=== PATIENT | female | born 1980 | race Caucasian/White ===

== ENCOUNTER 2021-01-21 08:54 | Outpatient (CLI) | payer BC, MEDICAID, SELFPAY ==
--- NOTE | 2021-01-21 09:02 | MM_ITS ---
WS: [id number] BILATERAL SCREENING MAMMOGRAM WITH MIAH DISPLACEMENT VIEWS. CAD PERFORMED. HISTORY: SCREENING COMPARISON: None available. Bilateral craniocaudal and mediolateral like views are performed. Miah displacement views in CC and MLO projection also performed. Breasts composition: There are scattered areas of fibroglandular density. Retropectoral implants are intact. There is a very tiny amount of calcification around the implants. No suspicious breast calcifications or mass. MM/[id number] IMPRESSION: BI-RADS: 2-Benign FOLLOW-UP: 1 Year Follow-up
== END 2021-01-21 08:55 | disposition home or self-care (01) ==
LOC: RADSHAW 08:59
PROVIDERS: PCP Family Medicine; Visit Provider Family Medicine
DX: Z12.31 Encounter for screening mammogram for malignant neoplasm of breast (principal)
CPT/HCPCS: 77067

== ENCOUNTER 2022-03-09 14:49 | Outpatient (CLI) | payer BC, MEDICAID, SELFPAY ==
--- NOTE | 2022-03-09 14:55 | MM_ITS ---
WS: [id number] BILATERAL 3D TOMOSYNTHESIS DIGITAL SCREENING MAMMOGRAPHY WITH CAD CLINICAL INFORMATION: SCREENING HISTORY: Screening mammogram. No current complaints. COMPARISON: January 21, 2021 TECHNIQUE: Bilateral CC and MLO views. FINDINGS: Bilateral breast implants appear mammographically intact. Small amount of capsular calcific ation. Scattered fibroglandular densities bilaterally. No suspicious focal mass, asymmetry, calcifications, or architectural distortion. No evidence of malignancy. MM/[id number] IMPRESSION: BI-RADS: 2-Benign FOLLOW UP: 1 Year Follow-up Recommend return to annual screening mammography.
== END 2022-03-09 14:50 | disposition home or self-care (01) ==
PROVIDERS: PCP Family Medicine; Visit Provider Nurse Practitioner Family
DX: Z12.31 Encounter for screening mammogram for malignant neoplasm of breast (principal)
CPT/HCPCS: 77063; 77067

== ENCOUNTER 2022-12-15 11:27 | Day surgery (SDC) | payer BC, MEDICAID, SELFPAY ==
[2022-12-14 11:39] VITALS: BMI 24.3
[2022-12-15] VITALS (7 sets, daily range): BP systolic 97–123; BP diastolic 61–71; PULSE 62–86; RESP 16–17; TEMP 36.3–37.6; O2SAT 97–100
[2022-12-15] MEDS: acetaminophen 1,000 MG/100 ML PIGGYBACK 400 MG IV (11:51)
[2022-12-15] MEDS: sodium chloride 0.9% 1,000 ML 30 ML IV (11:51)
[2022-12-15] MEDS: scopolamine 1.5 Patch 1 PATCH TRANSDERMA (11:51)
[2022-12-15] MEDS: gabapentin 300 mg Capsule PO (11:51)
[2022-12-15] MEDS: phenazopyridine 100 mg Tablet 200 MG PO (11:51)
[2022-12-15] MEDS: CELEcoxib 200 mg Capsule 400 MG PO (11:54)
--- NOTE | 2022-12-15 11:58 | W.PM.OPSUD ---
Surgery/Procedure H&P Update DATE OF PROCEDURE: December 15, 2022 DATE H&P PERFORMED: 12/10/22 H&P UPDATE INFORMATION: I have reviewed H&P completed within last 30 days, I have examined patient prior to procedure and No changes to prior documentation PREOP DIAGNOSIS: desires permanent sterilization PLANNED PROCEDURE: Operation Date: 12/15/22 13:25 Proposed Procedures p Laparoscopic bilateral salpingectomy 80199 Z30.2(Bilateral) - Cynthia Arteaga MD Related Problem List Diagnoses (1) Sterilization consult:
[2022-12-15 12:06] LABS: OR HCG Qualitative Urine Negative (Negative)
--- NOTE | 2022-12-15 13:09 | ANES.PREANE2 ---
Pre-Anesthetic Assessment Height/Weight: Height 1.78 m Weight 77.111 kg Temp Pulse Resp BP Pulse Ox O2 Del Method 97.8 F 62 16 123/63 98 12/15/22 11:45 12/15/22 11:45 12/15/22 11:45 12/15/22 11:45 12/15/22 11:45 12/15/22 12:03 Preop Diagnosis: desires permanent sterilization Operation Date: 12/15/22 13:25 Proposed Procedures p Laparoscopic bilateral salpingectomy 27041 Z30.2(Bilateral) - Cynthia Arteaga MD Familial anesthetic complications: PONV Was Beta Tenisha taken within 24 hours: N/A Was Clonidine taken within 24 hours: N/A Last intake: Intake Last Liquid Date 12/14/22 Last Liquid Time 22:30 Last Solid Date 12/14/22 Last Solid Time 22:30 Social No alcohol and No tobacco Exam alert, oriented x 3, clear to auscultation bilaterally and regular rate & rhythm Airway Submandibular: within normal limits Cervical ROM: within normal limits Mallampati: Class II Dentition: full History/ROS No significant history except as noted Neuropsych Anxiety and Depression Anesthetic Plan ASA status: 2 Anesthesia: General Medications/Allergies Home Medications Medication Instructions Recorded Confirmed Last Taken Type medroxyprogesterone 150 mg/mL 150 mg IM DIRECTED 10/15/22 12/14/22 11/19/22 History intramuscular suspension (Depo-Provera) bupropion HCl 100 mg tablet,12 hr 150 mg PO DAILY 12/10/22 12/14/22 12/14/22 05:30 History sustained-release (Wellbutrin SR) citalopram 30 mg capsule 40 mg PO DAILY 12/10/22 12/14/22 12/14/22 05:30 History Allergies Allergy/AdvReac Type Severity Reaction Status Date / Time No Known Allergies Allergy Verified 12/14/22 11:36 Current Medications Generic Name Dose Route Start Last Admin Trade Name Freq PRN Reason Stop Dose Admin Sodium Chloride 1,000 mls @ 30 mls/hr 12/15/22 11:45 12/15/22 11:51 Sodium Chloride 0.9% IV 12/16/22 11:44 30 mls/hr .Q24H DIEGO Administration PFSH Anesthesia Medical History No pertinent past medical history Family History Family/Other Breast cancer Aunt Denies family history of Colon cancer Ovarian cancer Diabetes Heart disease Hypercholesteremia Hypertension Uterine cancer Thyroid disease Stroke Data Anesthesia Cardiac Studies: No Data to Display
[2022-12-15] MEDS: ceFAZolin 2,000 MG in sodium chloride 0.9% (plus) 50 ML 100 MG IV (13:17)
--- NOTE | 2022-12-15 14:42 | P.OP_ITS ---
Operative Report Date of procedure: December 15, 2022 Pre-op diagnosis: Preop Diagnosis desires permanent sterilization Post-op diagnosis: same Post-op findings: enlarged, fibroid uterus, uterine prolapse grade 3. Right adnexal adhesions. Normal left tube and ovary Procedure done: laparoscopic bilateral salpingectomy Specimens removed/disposition: bilateral fallopian tubes to pathology Surgeon: Cynthia Arteaga Anesthesia: General Estimated blood loss (mL): 5 IV fluids (mL): 700 Urine output (mL): 100 Complications: none Condition: stable Disposition: PACU Procedure: The patient was taken to the operating room where general anesthesia was administered and found to be adequate. She was prepped and draped in the normal sterile fashion in the dorsal lithotomy position in [facility]. A Knapp catheter was placed. A weighted speculum was placed into the vagina and the anterior lip of the cervix grasped with a single-tooth tenaculum. A ZUMI uterine manipulator was placed. The gloves were changed and attention was turned to the laparoscopic portion of the case. A 5 mm infraumbilical incision was made. The 5 mm trocar was placed using the easy view trocar. Intra-abdominal placement was confirmed and CO2 gas was used to insufflate the abdomen. Using direct visualization and illumination of the abdominal wall, two 5 mm incisions were made low and lateral. One on the left and one on the right. The 5mm trochars were then placed under direct visualization. Using the uterine manipulator and the grasper, the fallopian tubes were identified. Using the laparoscopic cautery, the fallopian tube was clamped cauterized and cut. First on the right, then on the left. There were some adhesions of the ovary and these were taken down with the cautery. There was excellent hemostasis post removal of the bilateral tubes. Pictures were taken. All instruments were removed. The abdomen was desufflated. The incisions were closed with 4-0 Vicryl. 10 ml of 1/2% bupivicaine was used around the incisions. The patient tolerated the procedure well. Sponge lap and needle counts were correct x3. She was taken to the recovery room in stable condition.
--- NOTE | 2022-12-15 14:51 | PM.DCS ---
Discharge Providers Date of Discharge: December 15, 2022 Attending Provider at Discharge: Cynthia Arteaga MD Primary Care Provider: Mirta Jeong MD Diagnoses at Discharge Discharge Diagnosis (1) Sterilization consult: Status: Acute Reason for Visit Reason for Visit: Z30.2 Hospital Course Hospital Course The patient was admitted for surgery. She did well postoperatively and was ready for discharge Physical Exam Urinary Catheter Management: Knapp: Cath Placed During This Visit: yes, but has since been removed by the nurse Urinary Catheter Date of Insertion: 12/15/22 Urinary Catheter Time of Insertion: 13:46 Date Urinary Catheter Removed: 12/15/22 Time Urinary Catheter Discontinued: 14:38 Discharge Data Studies Completed and Pending Pending at discharge Category Date Time Status Urine Culture Routine Lab 12/15/22 13:50 Received Pathology: Surgical [PTH] Routine Pth 12/15/22 14:50 Ordered Laboratory Results Urine HCG, Qual Negative (Negative) 12/15/22 11:38 Vitals Last Vital Signs Temp 97.8 F 12/15/22 11:45 Pulse 62 12/15/22 11:45 Resp 16 12/15/22 11:45 BP 123/63 12/15/22 11:45 Pulse Ox 98 12/15/22 11:45 O2 Del Method 12/15/22 12:03 O2 Flow Rate 6 12/15/22 14:44 Discharge Plan Discharge Patient Disposition: Home Condition: Stable Prescriptions: New hydrocodone-acetaminophen 5-325 mg tablet 1 tab PO Q4H Qty: 20 0RF Continued medroxyprogesterone [Depo-Provera] 150 mg/mL suspension 150 mg IM DIRECTED Rx Instructions: EVERY 3 MONTHS bupropion HCl [Wellbutrin SR] 100 mg tablet sustained-release 12 hr 150 mg PO DAILY citalopram 30 mg capsule 40 mg PO DAILY Discharge Orders: Discharge Order (Routine); Ordered 12/15/22 Ordered By: Cynthia Arteaga Referrals: Cynthia Arteaga MD [Physician] - Patient Instructions: Post Anesthesia Care Stand Alone Forms: Work/School Release, Work/School Release Discharge Attestations Time Spent in Discharge Care*: less than 30 min Quality Metrics Clinical Quality Measures [ No reported AMI, CVA or VTE this stay] Coding Level of Care Code Acute Chg FW DC note Diagnoses Sterilization consult Z30.09
[2022-12-15] MEDS: ondansetron 2 mg/ML SDV 2 mL 4 MG IVP (15:25)
--- NOTE | 2022-12-15 15:42 | SUR.PHASEII ---
Nausea As patient was getting up and getting dressed, she became nauseous. She was given 4mg Zofran IVP. VS taken and WNL. Patient verbalized relief of nausea shortly after medication given. Crackers and sprite offered. Emesis bag given for ride home.
--- NOTE | 2022-12-15 16:02 | ANE.PACU2 ---
Inpatient post-anesthesia follow up: Airway intact: Yes Vital signs: Temperature 98.9 F Pulse Rate 70 Respiratory Rate 16 Blood Pressure 97/61 Pulse Oximetry 99 Oxygen Delivery Me thod Room Air Oxygen Flow Rate 6 Fraction of Inspir ed Oxygen Hydration adequate: Yes Nausea and vomiting: No Pain level: 3 Mental status: Baseline
== END 2022-12-15 15:42 | disposition home or self-care (01) ==
PROVIDERS: Anesthesiology; PCP Family Medicine; Visit Provider Obstetrics & Gynecology
PROC: (CPT 58661; principal; 2022-12-15 13:15)
DX: Z30.2 Encounter for sterilization (principal); N81.3 Complete uterovaginal prolapse; N73.6 Female pelvic peritoneal adhesions (postinfective); D25.9 Leiomyoma of uterus, unspecified; Z87.891 Personal history of nicotine dependence
CPT/HCPCS: 58661; 81025; 84703; 87086; 88302; J0131; J0690; J1100; J1885; J2250; J2405; J2704; J2710; J3010; J3490; J7030

== ENCOUNTER 2023-03-23 09:03 | Outpatient (CLI) | payer BC, MEDICAID, SELFPAY ==
--- NOTE | 2023-03-23 09:15 | MM_ITS ---
WS: [id number] VIEWS: MLO and CC views both breasts. Breast implant displacement MLO and CC views are also performe d. 3D digital tomosynthesis is also included in this exam. Comparison made with prior exam of 01/21/2021, Findings: There was no sign of mass, architectural distortion or suspicious calcification in either breast. He terogeneously dense MM/[id number] Impression: BI-RADS: 2-Benign FOLLOW-UP: 1 Year Follow-up This mammogram was also analyzed by the Computer Aided Detection System R2 Imag e Advanced Quality Engineer.
== END 2023-03-23 09:04 | disposition home or self-care (01) ==
PROVIDERS: PCP Family Medicine; Visit Provider Family Medicine
DX: Z12.31 Encounter for screening mammogram for malignant neoplasm of breast (principal)
CPT/HCPCS: 77063; 77067

== ENCOUNTER 2024-05-02 08:26 | Outpatient (CLI) | payer BC, SELFPAY ==
--- NOTE | 2024-05-02 08:41 | MM_ITS ---
WS: [id number] BILATERAL 3D TOMOSYNTHESIS DIGITAL SCREENING MAMMOGRAPHY WITH CAD CLINICAL INFORMATION: SCREENING HISTORY: Screening mammogram. No current complaints. COMPARISON: 2022 TECHNIQUE: Bilateral CC and MLO views. FINDINGS: Stable bilateral breast implants with capsular calcifications. The breasts are composed of heterogeneous fibroglandular density tissue, which can limit the detectio n of small underlying mass lesions. A few tiny incidental punctate calcifications. Increasing slightl y spiculated parenchymal tissue in the inner quadrant RIGHT breast best seen on the cc view. Recommen d RIGHT breast diagnostic mammography and ultrasound in further evaluation. LEFT breast is unchanged. MM/[id number] IMPRESSION: BI-RADS: 0-Incomplete: Need additional imaging evaluation FOLLOW UP: Need Additional Imaging Recommend RIGHT breast diagnostic mammography and ultrasound in further evaluat ion.
== END 2024-05-02 08:27 | disposition home or self-care (01) ==
LOC: RAD 08:26
PROVIDERS: PCP Family Medicine; Visit Provider Family Medicine
DX: Z12.31 Encounter for screening mammogram for malignant neoplasm of breast (principal); R92.323 Mammographic fibroglandular density, bilateral breasts; R92.333 Mammographic heterogeneous density, bilateral breasts; R92.8 Other abnormal and inconclusive findings on diagnostic imaging of breast
CPT/HCPCS: 77063; 77067

== ENCOUNTER 2024-06-22 14:54 | Outpatient (CLI) | payer BC, SELFPAY ==
--- NOTE | 2024-06-22 15:03 | MM_ITS ---
WS: [id number] RIGHT 3D TOMOSYNTHESIS DIGITAL MAMMOGRAPHY WITH CAD CLINICAL INFORMATION: ABNORMAL MAMMOGRAM HISTORY: Additional views COMPARISON: 05/02/2023 TECHNIQUE: 3 views of the right breast were obtained. FINDINGS: Scattered fibroglandular densities of the right breast. Previously described asymmetric density inner quadrant RIGHT breast partially compresses out on the spot compression views and ultrasound is pendi ng. No new abnormalities ULTRASOUND BREAST RIGHT TECHNIQUE: Ultrasound right breast focused area of concern. CLINICAL INFORMATION: ABNORMAL MAMMOGRAM FINDINGS: Ultrasound inner quadrant RIGHT breast. No suspicious cystic or solid lesions. Normal underlying pare nchymal tissue. No lesions to target for biopsy. Findings are benign. MM/[place] [id number] IMPRESSION: BI-RADS: 2-Benign FOLLOW UP: 1 Year Follow-up Recommend return to annual screening mammography.
== END 2024-06-22 14:55 | disposition home or self-care (01) ==
LOC: RAD 14:57
PROVIDERS: PCP Family Medicine; Visit Provider Family Medicine
DX: R92.8 Other abnormal and inconclusive findings on diagnostic imaging of breast (principal); R92.323 Mammographic fibroglandular density, bilateral breasts; N64.89 Other specified disorders of breast
CPT/HCPCS: 76642; 77061; G0279